=== PATIENT | male | born 1965 | race Caucasian/White ===

== ENCOUNTER 2019-07-24 06:37 | Day surgery (SDC) | payer BC ==
[~2019-07-24 06:37] MED LIST: ACETAMINOPHEN 1,000 MG/100 ML BTL IVPB ONE; SCOPOLAMINE 1 PATCH TDSY TD ONE
[2019-07-24] MEDS ORDERED: LIDOCAINE 2% MDV (20MG/ML) 20ML VIAL IV ONE (06:38)
[2019-07-24] MEDS ORDERED: PROPOFOL 10 MG/ML VIAL IV ONE (06:38)
[2019-07-24] MEDS ORDERED: ONDANSETRON HCL IV 4 MG/2 ML VIAL IVP ONE (06:38)
[2019-07-24] MEDS ORDERED: FENTANYL PF 100MCG/2ML VIAL IV ONE (06:38)
[2019-07-24] MEDS ORDERED: MIDAZOLAM HCL 2MG/2ML VIAL IV ONE (06:38)
[2019-07-24] MEDS ORDERED: DEXAMETHASONE 4 MG/ML 1ML VIAL IVP ONE (06:38)
[2019-07-24] MEDS ORDERED: DESFLURANE 240 ML BTL INH ONE (06:38)
[2019-07-24] MEDS ORDERED: RINGERS SOLUTION,LACTATED 1,000 ML IV ONE (09:56)
--- NOTE | 2019-07-24 12:24 | Operative Note ---
DATE OF SURGERY: 07/24/2019 SURGEON: Orlando Dorman D.O. REFERRING PHYSICIAN: Little Vogt D.O. PREOPERATIVE DIAGNOSIS: GANGLION OF THE RIGHT RING FINGER AT THE A2 LISSETT. POSTOPERATIVE DIAGNOSIS: GANGLION OF THE RIGHT RING FINGER AT THE A2 LISSETT. OPERATION: EXCISION OF THE GANGLION OF THE RIGHT RING FINGER AT THE A2 LISSETT USING 3.5 LOOP MAGNIFICATION. DESCRIPTION: This 54-year-old male was taken to the Operating Room and placed in the supine position on the operating room table. A general anesthetic was administered and the right upper extremity was elevated. It was prepped with Hibiclens and draped in the usual sterile fashion. It was exsanguinated and the tourniquet was inflated to 250 mmHg. The ganglion mass of the right ring finger was palpable at the flexor crease of the metacarpal phalangeal joint and we made a transverse incision in the flexor crease and dissection was carried down through the skin and subcutaneous tissue. The dome of the ganglion was easily identified and it was bluntly dissected down to the distal margin of the A2 lissett. We then made an incision at the distal margin of the A2 lissett, a distance of about 2-3 mm, enough to get the stalk of the ganglion out. This was easily accomplished and the neurovascular structures both radially and ulnarly were protected during the operative procedure. The ganglion cyst was approximately 5 mm in greatest dimension. We inspected the sublimis tendons as we flexed and extended the finger with no evidence of any damage to the flexor tendon system. The wound was then irrigated and closed with interrupted 6-0 nylon suture. Sterile dressings were applied and the patient was taken to the Recovery Room in satisfactory condition. GROSS PATHOLOGY: This patient had an approximately 5 mm ganglion attached to the distal margin of the A2 lissett which was removed in the manner described above. JOB NUMBER: [id number] MTDD
== END 2019-07-24 11:30 | disposition home or self-care (01) ==
LOC: SUR 06:37
PROVIDERS: ATTEND Orthopaedic Surgery
DX: M67.441 Ganglion, right hand (principal); E11.9 Type 2 diabetes mellitus without complications; J45.909 Unspecified asthma, uncomplicated; R42 Dizziness and giddiness; G62.9 Polyneuropathy, unspecified; E66.9 Obesity, unspecified
CPT/HCPCS: J2405; J7120